=== PATIENT | female | born 1955 | race Caucasian/White ===

== ENCOUNTER → 2018-05-21 16:11 | Outpatient (CLI) | payer OTHER, SELFPAY ==
[2018-05-21 17:19] LABS: Alanine Aminotransferase 25 IU/L (9-52); Albumin 4.2 g/dL (3.5-5.0); Albumin Globulin Ratio 1.2 (1.0-2.8); Alkaline Phosphatase 69 U/L (38-126); Aspartate Aminotransferase 18 IU/L (14-36); BUN Creatinine Ratio 28.6 (6-22); Blood Urea Nitrogen 20 mg/dL (7-17); Calcium 9.5 mg/dL (8.4-10.2); Carbon Dioxide 31 mmol/L (22-32); Chloride 100 mmol/L (98-107); Cholesterol 186 mg/dL (140-199); Estimated Glomerular Filt Rate > 60.0 mL/min (>60); Globulin 3.6 g/dL (1.7-4.1); Glucose 102 mg/dL (80-110); HDL Cholesterol 48 mg/dL (40-60); HEMOLYSIS < 15 (0-50); LDL Cholesterol Calculated 117 mg/dL (<100); Potassium 4.3 mmol/L (3.4-5.1); Sodium 138 mmol/L (137-145); Total Protein 7.8 g/dL (6.3-8.2); Triglycerides 105 mg/dL (35-150)
[2018-05-21 17:44] LABS: TSH w/ Reflex to FT4 0.04 uIU/mL (0.47-4.68)
[2018-05-21 18:13] LABS: Free T4, Direct Thyroxine 1.32 ng/dL (0.78-2.19)
== END ==
PROVIDERS: PCP Family Medicine; Visit Provider Family Medicine
DX: Z13.1 Encounter for screening for diabetes mellitus (principal); Z13.220 Encounter for screening for lipoid disorders; E03.9 Hypothyroidism, unspecified
CPT/HCPCS: 36415; 80053; 80061; 84439; 84443

== ENCOUNTER → 2018-06-05 08:33 | Outpatient (CLI) | payer OTHER, SELFPAY ==
--- NOTE | 2018-06-05 | DI.MG.S_ITS ---
BILATERAL DIGITAL SCREENING MAMMOGRAM 3D/2D WITH CAD: 06/05/2018 CLINICAL: Routine screening. Family history of breast cancer. Comparison is made to exams dated: 05/21/2015 mammogram, 01/05/2014 mammogram, and 12/11/2012 mammogram - [facility]. There are scattered fibroglandular elements in both breasts. Current study was also evaluated with a Computer Aided Detection (CAD) system. No significant masses, calcifications, or other findings are seen in either breast. There has been no significant interval change. IMPRESSION: NEGATIVE There is no mammographic evidence of malignancy. A 1 year screening mammogram is recommended. This exam was interpreted at Station ID: [id number]. NOTE: For mammograms, a report in lay terms will be sent to the patient. Approximately 15% of breast malignancies will not be visualized mammographically. In the management of a palpable breast mass, a negative mammogram must not discourage biopsy of a clinically suspicious lesion. Electronically Signed By: Abi mendoza/deya:06/05/2018 09:03:30 copy to: Samaria Garcia letter sent: Normal Exam ACR BI-RADS Category 1: Negative 3341F
== END ==
PROVIDERS: PCP Family Medicine
DX: Z12.31 Encounter for screening mammogram for malignant neoplasm of breast (principal); Z80.3 Family history of malignant neoplasm of breast
CPT/HCPCS: 77063; 77067

== ENCOUNTER → 2020-05-22 15:41 | Outpatient (CLI) | payer OTHER, SELFPAY ==
--- NOTE | 2020-05-22 15:43 | DI.MG.S_ITS ---
BILATERAL DIGITAL SCREENING MAMMOGRAM 3D/2D WITH CAD: 05/22/2020 CLINICAL: Routine screening. Family history of breast cancer. Comparison is made to exams dated: 06/05/2018 mammogram, 05/21/2015 mammogram, and 01/05/2014 mammogram - [facility]. There are scattered fibroglandular elements in both breasts. Current study was also evaluated with a Computer Aided Detection (CAD) system. No significant masses, calcifications, or other findings are seen in either breast. There has been no significant interval change. IMPRESSION: NEGATIVE There is no mammographic evidence of malignancy. A 1 year screening mammogram is recommended. This exam was interpreted at Station ID: [id number]. NOTE: For mammograms, a report in lay terms will be sent to the patient. Approximately 15% of breast malignancies will not be visualized mammographically. In the management of a palpable breast mass, a negative mammogram must not discourage biopsy of a clinically suspicious lesion. Electronically Signed By: Elisha delgado/deya:05/24/2020 10:25:39 copy to: Samaria Garcia copy to: YONI WOLFE letter sent: Normal Exam ACR BI-RADS Category 1: Negative 3341F
== END ==
PROVIDERS: PCP Family Medicine
DX: Z12.31 Encounter for screening mammogram for malignant neoplasm of breast (principal); Z80.3 Family history of malignant neoplasm of breast
CPT/HCPCS: 77063; 77067

== ENCOUNTER → 2022-11-21 08:31 | Outpatient (CLI) | payer OTHER, SELFPAY ==
[2022-11-21 09:07] LABS: Add Manual Diff / Slide Review NO; Basophils Absolute Auto 0 /uL (0-100); Basophils Percent Auto 0.8 % (0-2); Eosinophils Absolute Auto 100 /uL (0-450); Eosinophils Percent Auto 1.8 % (2-4); Hematocrit 37.2 % (36-46); Hemoglobin 12.6 g/dL (12.0-16.0); Lymphocytes Absolute Auto 1300 /uL (1100-4500); Lymphocytes Percent Auto 41.2 % (25-40); Mean Corpuscular Hemoglobin 30.6 PG (26-34); Mean Corpuscular Volume 90.1 fL (80-100); Monocytes Absolute Auto 200 /uL (0-900); Monocytes Percent Auto 6.9 % (3-14); Neutrophils Absolute Auto 1500 /uL (1500-7000); Neutrophils Percent Auto 49.3 % (50-75); Platelet Count 177 X10^3/uL (150-400); Red Blood Cell Count 4.12 X10^6/uL (4.0-5.2); Red Cell Distribution Width 12.7 % (11.6-14.8); White Blood Cell Count 3.1 X10^3/uL (4.5-11.0)
[2022-11-21 09:18] LABS: Alanine Aminotransferase 13 IU/L (<35); Albumin 4.1 g/dL (3.5-5.0); Albumin Globulin Ratio 1.2 (1.0-2.8); Alkaline Phosphatase 59 U/L (38-126); Aspartate Aminotransferase 18 IU/L (14-36); BUN Creatinine Ratio 17.4 (6-22); Bilirubin Total 1.6 mg/dL (0.2-1.3); Blood Urea Nitrogen 12 mg/dL (7-17); Calcium 9.5 mg/dL (8.4-10.2); Carbon Dioxide 30 mmol/L (22-32); Chloride 101 mmol/L (98-107); Cholesterol 197 mg/dL (140-199); Estimated Glomerular Filt Rate > 60 mL/min (>60); Globulin 3.5 g/dL (1.7-4.1); Glucose 90 mg/dL (80-110); HDL Cholesterol 59 mg/dL (40-60); HEMOLYSIS < 15 (0-50); LDL Cholesterol Calculated 115 mg/dL (<100); Potassium 4.5 mmol/L (3.4-5.1); Sodium 137 mmol/L (137-145); Total Protein 7.6 g/dL (6.3-8.2); Triglycerides 115 mg/dL (35-150)
== END ==
PROVIDERS: PCP Family Medicine; Referring Provider Family Medicine; Visit Provider Family Medicine
DX: E03.9 Hypothyroidism, unspecified (principal); E78.2 Mixed hyperlipidemia; Z13.6 Encounter for screening for cardiovascular disorders
CPT/HCPCS: 36415; 80053; 80061; 84443; 85025

== ENCOUNTER → 2022-12-29 09:25 | Outpatient (CLI) | payer OTHER, SELFPAY ==
[2022-12-29 10:13] LABS: Add Manual Diff / Slide Review NO; Basophils Absolute Auto 0 /uL (0-100); Basophils Percent Auto 0.7 % (0-2); Eosinophils Absolute Auto 0 /uL (0-450); Eosinophils Percent Auto 1.2 % (2-4); Hemoglobin 13.1 g/dL (12.0-16.0); Lymphocytes Absolute Auto 1200 /uL (1100-4500); Mean Corpuscular HGB Conc 34.4 % (30-36); Mean Corpuscular Hemoglobin 30.6 PG (26-34); Mean Corpuscular Volume 88.9 fL (80-100); Monocytes Absolute Auto 300 /uL (0-900); Monocytes Percent Auto 8.4 % (3-14); Neutrophils Absolute Auto 1800 /uL (1500-7000); Neutrophils Percent Auto 53.7 % (50-75); Platelet Count 179 X10^3/uL (150-400); Red Blood Cell Count 4.28 X10^6/uL (4.0-5.2); Red Cell Distribution Width 12.4 % (11.6-14.8); White Blood Cell Count 3.3 X10^3/uL (4.5-11.0)
[2022-12-29 10:47] LABS: Alanine Aminotransferase 15 IU/L (<35); Albumin 4.1 g/dL (3.5-5.0); Albumin Globulin Ratio 1.2 (1.0-2.8); Alkaline Phosphatase 65 U/L (38-126); Aspartate Aminotransferase 20 IU/L (14-36); BUN Creatinine Ratio 14.5 (6-22); Bilirubin Total 1.6 mg/dL (0.2-1.3); Blood Urea Nitrogen 11 mg/dL (7-17); Calcium 9.9 mg/dL (8.4-10.2); Carbon Dioxide 32 mmol/L (22-32); Chloride 100 mmol/L (98-107); Estimated Glomerular Filt Rate > 60 mL/min (>60); Globulin 3.3 g/dL (1.7-4.1); Glucose 97 mg/dL (80-110); HEMOLYSIS < 15 (0-50); Potassium 4.5 mmol/L (3.4-5.1); Sodium 136 mmol/L (137-145); Total Protein 7.4 g/dL (6.3-8.2)
== END ==
PROVIDERS: PCP Family Medicine; Referring Provider Family Medicine; Visit Provider Family Medicine
DX: E80.6 Other disorders of bilirubin metabolism (principal); D70.9 Neutropenia, unspecified
CPT/HCPCS: 36415; 80053; 85025

== ENCOUNTER → 2023-01-05 10:12 | Outpatient (CLI) | payer OTHER, SELFPAY ==
--- NOTE | 2023-01-05 10:13 | DI.US.S_ITS ---
PROCEDURE: US ABDOMEN COMPLETE INDICATIONS: ELEVATED BILIRUBIN TECHNIQUE: Real-time scanning was performed of the abdominal and retroperitoneal organs, with image documentation. COMPARISON: None. FINDINGS: Liver: Liver is normal in size and homogeneous in echotexture. 9 left attic cyst measuring 1.3 cm. Gallbladder: Gallbladder sludge. No wall thickening or evidence of acute cholecystitis. Biliary ducts: Intrahepatic bile ducts are non-dilated. Extrahepatic bile duct caliber measures 5 mm. Normal is 6-7 mm or less in diameter, or 10 mm or less post-cholecystectomy. Pancreas: Visualized portions of the pancreas are sonographically normal. Spleen: Spleen is normal in size and homogeneous in echotexture. Kidneys: Kidneys are normal in size and echotexture. Right kidney measures 8.8 cm long; left kidney measures 5.5 cm long. No hydronephrosis or nephrolithiasis. No solid masses. Aorta: Visualized aorta is normal in caliber at less than 3 cm. Iliacs: Proximal common iliac arteries are normal in caliber at less than 2.5 cm. IVC: Intrahepatic inferior vena cava is patent. Miscellaneous: No free abdominal fluid. IMPRESSION: Gallbladder sludge. No evidence of biliary obstruction or acute cholecystitis. Dictated by: Jules Wilson M.D. on 01/05/2023 at 11:36 Approved by: Jules Wilson M.D. on 01/05/2023 at 11:37
== END ==
PROVIDERS: PCP Family Medicine; Referring Provider Family Medicine; Visit Provider Family Medicine
DX: K82.8 Other specified diseases of gallbladder (principal); R17 Unspecified jaundice
CPT/HCPCS: 76700

== ENCOUNTER 2023-05-29 09:46 | Day surgery (SDC) | payer OTHER, SELFPAY ==
[2023-05-23 13:29] VITALS: BMI 26.4
[2023-05-29] VITALS (9 sets, daily range): BP systolic 114–139; BP diastolic 65–79; PULSE 54–82; RESP 12–24; TEMP 36.4–36.6; O2SAT 96–100; BMI 26.4
[2023-05-29] MEDS: LACTATED RINGERS 1,000 ML 100 ML IV (10:12)
--- NOTE | 2023-05-29 10:40 | P.HP_ITS ---
History of Present Illness History of Present Illness Date Patient Seen: 05/29/23 Time Patient Seen: 10:40 Chief complaint: Left Laparoscopic Inguinal Hernia Repair Narrative: Delmy is a 59-year-old woman with a left inguinal hernia. Initially it was minimally symptomatic but it has become more bothersome recently. It has also increased in size. [facility] Medical History Cardiac arrhythmia Chicken pox (~1961) Depression (1988) Frozen shoulder (2001) Herpes (1982) Hypothyroidism (~1994) Measles (~1961) Mumps (~1961) Shoulder pain (2001) Tinnitus Ubqxl-Gvhtwbkjo-Ohabl (WPW) pattern Surgical History Anesthesia History of bilateral tubal ligation (1992) History of shoulder surgery (2001) History of shoulder surgery (2003) History of tonsillectomy (1967) Family History Brother Age: 69 Diabetes mellitus Hypertension High cholesterol Brother Age: 63 Mental health problem Grandmother Osteoporosis Grandmother Heart disease Sister Mental health problem Hepatitis C Addiction Father ALS (amyotrophic lateral sclerosis) Mother Pancreatic cancer Grandfather Alzheimer's dementia Sister No problems noted. Grandfather No problems noted. 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 leisure activities: reading and other (travel) Smoking Status: Never smoker alcohol intake: current substance use type: does not use Meds Home Medications and Allergies Home Medications Medication Instructions Recorded Confirmed Type simvastatin 20 mg tablet (Zocor) 20 mg PO HS #90 tabs 05/30/19 05/29/23 Rx levothyroxine 100 mcg tablet See Rx Instructions .Route 01/08/23 05/29/23 Rx .COMPLEX #90 tabs citalopram 20 mg tablet 10 mg PO DAILY #90 tabs 05/08/23 05/29/23 Rx Allergies Allergy/AdvReac Type Severity Reaction Status Date / Time codeine [CODEINE] AdvReac Mild VOMITING Verified 05/08/23 09:07 hydrocodone [HYDROCODONE] AdvReac Mild VOMITING Verified 05/29/23 10:14 oxycodone [OXYCODONE] AdvReac Mild VOMITING Verified 05/08/23 09:07 pseudoephedrine AdvReac Mild shakey Verified 05/08/23 09:07 [From Sudafed] Exam Vital Signs (past 8 hours): - 05/29/23 10:24 Pulse Rate 60 Respiratory Rate 18 Blood Pressure 120/70 Oxygen Delivery Method Room Air Oxygen Delivery Method Room Air Narrative Exam Narrative: Reducible left inguinal hernia Assessment & Plan Assessment and plan (1) Left inguinal hernia: Status: Acute Plan We discussed the risks benefits and indications of laparoscopic left inguinal hernia repair with mesh and she would like proceed.
[2023-05-29] MEDS: CEFAZOLIN 2 GM/100 ML PREMIX 100 ML IV (12:25)
--- NOTE | 2023-05-29 12:39 | SUR.OPER ---
Supine on padded OR bed, head on pillow, arms padded and tucked at sides, legs uncrossed, safety belt at thigh, tape over blanket over lower legs .
[2023-05-29] MEDS: BUPIVACAINE 0.5% (PF) 10 ML VIAL 30 ML INJ (12:46)
--- NOTE | 2023-05-29 13:36 | P.OP_ITS ---
Operative Date/Time/Diagnoses Date of procedure: 05/29/23 Time of procedure: 13:36 Pre-op diagnosis: Left inguinal hernia Post-op diagnosis: same Procedure & Clinicians Procedure: Laparoscopic left inguinal hernia repair with mesh Same procedure as scheduled: Yes Surgeon: Keron Marquez [employer] Supplies Distributor: Vince Gagnon Operative Notes Procedure in detail: The patient was given preoperative antibiotics. The patient was brought to the operating room, placed on the table in the supine position with the arms tucked and general anesthesia was induced. The abdomen was prepped and draped in the usual fashion. A time-out was performed. A 1 cm transverse incision was cre ated superior to the umbilicus and dissection was carried down to the fascia. The fascia was grasped with a Roe clamp to elevate the abdominal wall. The fascia was scored transversely with cautery. A Peon clamp was used to tinoco the peritoneum. The Sumit port was placed and the abdomen was insufflated to 15 mmHg. The camera was inserted, there was no evidence of any injury from the entry. There was an indirect left inguinal hernia. 5 mm ports were placed under direct vision in the mid left and mid right abdomen. The patient was positioned in Trendelenburg. We created left peritoneal flap. The peritoneum was dissected off of the round ligament and the Ravi's ligament was exposed. A large left Bard mesh was brought in and placed over the defect with the medial edge against Ravi's ligament. We then closed the peritoneal flap with a running 3-0 barbed suture. We took one last look around the abdomen and saw no other abnormalities. The suture was removed and accounted for. The 5 mm ports were removed under direct vision. The abdomen was desufflated. The Sumit port was removed. Additional local was injected into the fascia and the infraumbilical fascial incision was closed with 2 interrupted 0 Vicryl sutures. The skin incisions were closed with 4 Monocryl, Steri-Strips and Band-Aids. Vince FORD provided assistance with exposure, retraction and closure of incisions. Post-operative Condition: stable Disposition: PACU
[2023-05-29] MEDS: TRAMADOL 50 MG TABLET PO (13:47)
[2023-05-29] MEDS: ONDANSETRON 4 MG/2 ML INJ IV (13:56)
[2023-05-29] MEDS: fentaNYL 100 MCG/2 ML INJ IV (14:11)
== END 2023-05-29 14:45 | disposition home or self-care (01) ==
PROVIDERS: PCP Family Medicine; Referring Provider Surgery; Visit Provider Surgery
PROC: 0YQ64ZZ Repair Left Inguinal Region, Percutaneous Endoscopic Approach (ICD-10-PCS; CPT 49650; principal; 2023-05-29 11:00)
DX: K40.90 Unilateral inguinal hernia, without obstruction or gangrene, not specified as recurrent (principal)
CPT/HCPCS: 49650; J0690; J1100; J2250; J2405; J2704; J3010

== ENCOUNTER → 2023-06-13 07:39 | Outpatient (CLI) | payer OTHER, SELFPAY ==
--- NOTE | 2023-06-13 07:42 | DI.RAD.S_ITS ---
PROCEDURE: XR RIBS RT 2V INDICATIONS: rib injury 06/01; + shingles (on antivirals) TECHNIQUE: 2 views of the right ribs were acquired. COMPARISON: None. FINDINGS: Surgical changes and devices: None. Bones and chest wall: No fractures or dislocations. No suspicious bony lesions. Overlying soft tissues appear unremarkable. Lungs and pleura: The visualized lung appears clear. No pleural effusions or pneumothorax are visible. IMPRESSION: No displaced right rib fracture noted. No underlying pneumothorax. Dictated by: Roger Cramer M.D. on 06/13/2023 at 8:14 Approved by: Roger Cramer M.D. on 06/13/2023 at 8:15
== END ==
PROVIDERS: PCP Student in an Organized Health Care Education/Training Program; Referring Provider Student in an Organized Health Care Education/Training Program; Visit Provider Student in an Organized Health Care Education/Training Program
DX: S23.41XA Sprain of ribs, initial encounter (principal); X58.XXXA Exposure to other specified factors, initial encounter
CPT/HCPCS: 71100

== ENCOUNTER → 2023-10-16 09:08 | Outpatient (CLI) | payer OTHER, SELFPAY | PROVIDERS: PCP Student in an Organized Health Care Education/Training Program; Visit Provider Student in an Organized Health Care Education/Training Program | DX: J02.0 Streptococcal pharyngitis (principal) | CPT/HCPCS: 87081 ==

== ENCOUNTER → 2023-11-23 10:12 | Outpatient (CLI) | payer OTHER, SELFPAY ==
--- NOTE | 2023-11-23 10:13 | DI.MG.S_ITS ---
BILATERAL DIGITAL SCREENING MAMMOGRAM 3D/2D WITH CAD: 11/23/2023 CLINICAL: Routine screening. Family history of breast cancer. Comparison is made to exams dated: 11/23/2021 mammogram - [facility], 05/22/2020 mammogram, and 06/05/2018 mammogram - [facility]. There are scattered areas of fibroglandular density in both breasts (category b / 25%-50% glandular tissue). Current study was also evaluated with a Computer Aided Detection (CAD) system. No significant masses, calcifications, or other findings are seen in either breast. There has been no significant interval change. IMPRESSION: NEGATIVE There is no mammographic evidence of malignancy. A 1 year screening mammogram is recommended. Based on the Tyrer Cuzick model (a risk assessment model) the patient's lifetime risk is 12.6% and her 10 year risk is 7.5%. According to the ACR, ACS, and NCCN guidelines, an annual breast MRI exam along with mammogram is recommended if the patient's lifetime risk is 20% or greater. This exam was interpreted at Station ID: [id number]. NOTE: For mammograms, a report in lay terms will be sent to the patient. Approximately 15% of breast malignancies will not be visualized mammographically. In the management of a palpable breast mass, a negative mammogram must not discourage biopsy of a clinically suspicious lesion. Electronically Signed By: Darío jasso/deya:11/24/2023 08:23:25 copy to: Samaria Garcia copy to: YONI WOLFE letter sent: Normal Exam ACR BI-RADS Category 1: Negative 3341F
== END ==
LOC: MAMMO 10:13
PROVIDERS: PCP Student in an Organized Health Care Education/Training Program; Referring Provider Student in an Organized Health Care Education/Training Program; Visit Provider Student in an Organized Health Care Education/Training Program
DX: Z12.31 Encounter for screening mammogram for malignant neoplasm of breast (principal); Z80.3 Family history of malignant neoplasm of breast; R92.323 Mammographic fibroglandular density, bilateral breasts
CPT/HCPCS: 77063; 77067

== ENCOUNTER 2025-01-22 13:12 | Emergency (ER) | payer OTHER, SELFPAY ==
[2025-01-22 13:17] VITALS: BP 158/103; PULSE 70; RESP 18; TEMP 36.3; O2SAT 99; BMI 27.4
[2025-01-22 13:47] LABS: Add Manual Diff / Slide Review NO; Basophils Absolute Auto 0 /uL (0-100); Basophils Percent Auto 0.8 % (0-2); Eosinophils Absolute Auto 100 /uL (0-450); Eosinophils Percent Auto 2.1 % (2-4); Hematocrit 37.8 % (36-46); Hemoglobin 12.9 g/dL (12.0-16.0); Lymphocytes Absolute Auto 1300 /uL (1100-4500); Lymphocytes Percent Auto 35.2 % (25-40); Mean Corpuscular HGB Conc 34.1 % (30-36); Mean Corpuscular Hemoglobin 30.9 PG (26-34); Mean Corpuscular Volume 90.6 fL (80-100); Monocytes Absolute Auto 300 /uL (0-900); Monocytes Percent Auto 7.2 % (3-14); Neutrophils Absolute Auto 2000 /uL (1500-7000); Neutrophils Percent Auto 54.7 % (50-75); Platelet Count 176 X10^3/uL (150-400); Red Blood Cell Count 4.17 X10^6/uL (4.0-5.2); Red Cell Distribution Width 12.7 % (11.6-14.8); White Blood Cell Count 3.6 X10^3/uL (4.5-11.0)
[2025-01-22 14:00] LABS: Alanine Aminotransferase 20 IU/L (<35); Albumin 4.5 g/dL (3.5-5.0); Albumin Globulin Ratio 1.2 (1.0-2.8); Alkaline Phosphatase 73 U/L (38-126); Aspartate Aminotransferase 31 IU/L (14-36); BUN Creatinine Ratio 27.3 (6-22); Bilirubin Total 1.6 mg/dL (0.2-1.3); Blood Urea Nitrogen 18 mg/dL (7-17); Calcium 9.5 mg/dL (8.4-10.2); Carbon Dioxide 24 mmol/L (22-32); Chloride 106 mmol/L (98-107); Estimated Glomerular Filt Rate > 60 mL/min (>60); Globulin 3.8 g/dL (1.7-4.1); Glucose 92 mg/dL (80-110); HEMOLYSIS 33 (0-50); Lipase 155 U/L (23-300); Potassium 4.3 mmol/L (3.4-5.1); Sodium 138 mmol/L (137-145); Total Protein 8.3 g/dL (6.3-8.2)
--- NOTE | 2025-01-22 14:16 | EKG_ITS ---
[address] [address] Test Date: 2025-01-22 Pat Name: Delmy Almaguer Department: [facility] Room: Gender: Female Clinical Dietitian: MG : 1955 Requested By: Order Number: [id number] Reading MD: Brandon Acevedo MD Measurements Intervals [place] Rate: 63 P: 26 HI: 146 QRS: 21 QRSD: 76 T: 16 QT: 386 QTc: 395 Interpretive Statements Normal sinus rhythm Electronically Signed On 01-22-2025 16:56:21 PDT by Brandon Acevedo MD
--- NOTE | 2025-01-22 16:22 | DI.US.S_ITS ---
PROCEDURE: US ABDOMEN LIMITED INDICATIONS: UPPER ABDOMINAL PAIN POST PRANDIAL TECHNIQUE: Real-time scanning was performed of the abdominal and retroperitoneal organs, with image documentation. COMPARISON: [facility], US, US ABDOMEN COMPLETE, 01/05/2023, 10:21. FINDINGS: Liver: Increased liver echogenicity. Benign left hepatic lobe cyst with thin internal septation measuring 1.3 centimeter. This has decreased from prior. Gallbladder: No gallstones. No wall thickening. No pericholecystic edema. Negative sonographic Mccollum's sign. Biliary ducts: Intrahepatic bile ducts are non-dilated. Extrahepatic bile duct caliber measures 6.7 mm. Normal is 6-7 mm or less in diameter, or 10 mm or less post-cholecystectomy. Pancreas: Visualized portions of the pancreas are sonographically normal. Miscellaneous: No free abdominal fluid. IMPRESSION: No gallbladder pathology. Increased liver echogenicity, likely mild hepatic steatosis. Dictated by: Jules Wilson M.D. on 01/22/2025 at 16:59 Approved by: Jules Wilson M.D. on 01/22/2025 at 17:00
[2025-01-22] MEDS: MAG HYDROX/ALUMINUM/SIMETH SUS 20 ML, LIDOCAINE VISCOUS 2% 15 ML PO (16:27)
[2025-01-22 17:19] VITALS: BP 140/71; PULSE 85; RESP 18
[2025-01-22 17:20] LABS: Creatine Kinase 47 U/L (30-135)
[2025-01-22 17:33] LABS: Troponin I < 0.012 ng/mL (0.01-0.034)
--- NOTE | 2025-01-22 18:00 | PC.NURSE ---
Patient reports her burning epigastric pain was initially relieved by GI cocktail but is now coming back.
--- NOTE | 2025-01-22 18:16 | DI.RAD.S_ITS ---
PROCEDURE: XR CHEST 1V INDICATIONS: chest pain TECHNIQUE: One view of the chest was acquired. COMPARISON: None. FINDINGS: Surgical changes and devices: None. Lungs and pleura: Lungs are clear. No pleural effusions or pneumothorax. Mediastinum: Mediastinal contours appear normal. Heart size is normal. Bones and chest wall: No suspicious bony lesions. Overlying soft tissues appear unremarkable. IMPRESSION: No acute cardiopulmonary abnormalities or focal consolidation. Dictated by: Darío Kirk M.D. on 01/22/2025 at 20:09 Approved by: Darío Kirk M.D. on 01/22/2025 at 20:10
--- NOTE | 2025-01-22 19:15 | ED_ITS ---
HPI - Abdominal Pain General Chief Complaint: Abdominal Pain Stated Complaint: upper abd pain after eating, nausea Time Seen by Provider: 01/22/25 19:07 History of Present Illness HPI narrative: Patient is 69-year-old female hypothyroid hyperlipidemia presenting to day with ongoing abdominal cramping pain and burning. Sometimes she feels burning in her chest but not now. She feels like she gets cramps occasionally no diarrhea no constipation no nausea no vomiting. No shortness a breath. No weight loss. Feels burning which is resolved with Maalox. She has not been taking excessive ibuprofen or NSAIDS. No black stools Related Data Home Medications Medication Instructions Recorded Confirmed albuterol sulfate 90 mcg/actuation 1 inh inhalation Q4-6H PRN 03/04/24 03/04/24 breath activated powder inhaler,sensor doxycycline hyclate 100 mg capsule 100 mg PO BID 03/04/24 03/04/24 fluticasone propionate 50 2 spray intranasal DAILY 03/04/24 03/04/24 mcg/actuation nasal spray,suspension (Allergy Relief (fluticasone)) prednisone 20 mg tablet 20 mg PO BID 03/04/24 03/04/24 Previous Rx's Medication Instructions Recorded triamcinolone acetonide 0.1 % 1 applic topical DAILY #30 grams 10/16/23 topical cream amoxicillin 875 mg-potassium 1 tab PO BID #14 tabs 03/04/24 clavulanate 125 mg tablet azithromycin 500 mg tablet See Rx Instructions PO .COMPLEX #3 03/04/24 tabs citalopram 20 mg tablet 20 mg PO DAILY #90 tabs 04/03/24 fluticasone propionate 44 2 puff PO BID #10.6 grams 05/06/24 mcg/actuation HFA aerosol inhaler simvastatin 20 mg tablet 20 mg PO QPM #90 tabs 05/06/24 levothyroxine 100 mcg tablet See Rx Instructions .Route 12/03/24 .COMPLEX #90 tabs omeprazole 20 mg capsule,delayed 20 mg PO DAILY #14 caps 01/22/25 release Allergies Allergy/AdvReac Type Severity Reaction Status Date / Time codeine [CODEINE] AdvReac Mild VOMITING Verified 03/04/24 10:35 hydrocodone [HYDROCODONE] AdvReac Mild VOMITING Verified 03/04/24 10:35 oxycodone [OXYCODONE] AdvReac Mild VOMITING Verified 03/04/24 10:35 pseudoephedrine AdvReac Mild shakey Verified 03/04/24 10:35 [From [facility]] Patient History Medical History Cardiac arrhythmia Chicken pox (~1961) Depression (1988) Frozen shoulder (2001) Herpes (1982) Hypothyroidism (~1994) Measles (~1961) Mumps (~1961) Shoulder pain (2001) Tinnitus Bldxg-Asrxqawxi-Dvgkc (WPW) pattern Surgical History Anesthesia History of bilateral tubal ligation (1992) History of shoulder surgery (2001) History of shoulder surgery (2003) History of tonsillectomy (1967) Family History Brother Age: 70 Diabetes mellitus Hypertension High cholesterol Brother Age: 64 Mental health problem Grandmother Osteoporosis Grandmother Heart disease Sister Mental health problem Hepatitis C Addiction Father ALS (amyotrophic lateral sclerosis) Mother Pancreatic cancer Grandfather Alzheimer's dementia Sister No problems noted. Grandfather No problems noted. 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 HEENT: Head atraumatic,EOMI, pupils reactive, face symmetric, moist mucous membranes CARDIOVASCULAR: Regular rate and rhythm without murmurs, rubs or gallops. RESPIRATORY: Breath sounds equal bilaterally, no wheezes rales or rhonchi. ABDOMEN: Soft, minimal abdominal pain mild epigastric pain negative Mccollum's sign no guarding no rebound positive bowel sounds EXTREMITIES: Normal range of motion, no clubbing or edema. Neurovascularly intact NEUROLOGICAL: Alert and oriented x4.Normal gait and speech. Cranial nerves II through XII grossly intact. SKIN: Warm, dry, no laceration, no petechiae, no rashes or lesions. Course Orders Ordered: ED Orders 01/22/25 19:36 CT abdomen pelvis w con Stat Discontinued Medications Al Hydrox/Mg Hydrox/Simethicone 20 ml/ Lidocaine HCl 15 ml 0 ml PO NOW ONE Stop: 01/22/25 16:19 Last Admin: 01/22/25 16:27 Dose: 35 ml Documented By: MG Ondansetron HCl (Ondansetron 4 Mg/2 Ml Inj) 4 mg IV NOW PRN PRN Reason: Nausea And Vomiting Ondansetron HCl (Ondansetron 4 Mg Odt) 4 mg PO NOW PRN PRN Reason: Nausea And Vomiting Pantoprazole Sodium (Pantoprazole 40 Mg Vial) 40 mg IV NOW ONE Stop: 01/22/25 18:17 Last Admin: 01/22/25 19:21 Dose: 40 mg Documented By: NIKKI Vital Signs Vital signs: Vital Signs - 8 hr 01/22/25 21:10 01/22/25 21:11 01/22/25 21:11 Pulse Rate 68 66 Blood Pressure 136/77 Pulse Oximetry 99 99 01/22/25 21:30 01/22/25 21:30 Pulse Rate 63 Blood Pressure 134/69 Pulse Oximetry 97 MDM - Abdominal Pain Lab Data 01/22/25 13:25 01/22/25 13:25 Labs: Lab Results 01/22/25 01/22/25 Range/Units 13:25 18:57 WBC 3.6 L (4.5-11.0) X10^3/uL RBC 4.17 (4.0-5.2) X10^6/uL Hgb 12.9 (12.0-16.0) g/dL Hct 37.8 (36-46) % MCV 90.6 (80-100) fL MCH 30.9 (26-34) PG MCHC 34.1 (30-36) % RDW 12.7 (11.6-14.8) % Plt Count 176 (150-400) X10^3/uL Neut % (Auto) 54.7 (50-75) % Lymph % (Auto) 35.2 (25-40) % [place] % (Auto) 7.2 (3-14) % Eos % (Auto) 2.1 (2-4) % Baso % (Auto) 0.8 (0-2) % Neut # (Auto) 2000 (1405-8145) /uL Lymph # (Auto) 1300 (8067-2072) /uL [place] # (Auto) 300 (0-900) /uL Eos # (Auto) 100 (0-450) /uL Baso # (Auto) 0 (0-100) /uL Sodium 138 (137-145) mmol/L Potassium 4.3 (3.4-5.1) mmol/L Chloride 106 (98-107) mmol/L Carbon Dioxide 24 (22-32) mmol/L BUN 18 H (7-17) mg/dL Creatinine 0.66 (0.52-1.04) mg/dL Estimated GFR > 60 (>60) mL/min BUN/Creatinine Ratio 27.3 H (6-22) Glucose 92 (80-110) mg/dL Calcium 9.5 (8.4-10.2) mg/dL Total Bilirubin 1.6 H (0.2-1.3) mg/dL AST 31 (14-36) IU/L ALT 20 (<35) IU/L Alkaline Phosphatase 73 (38-126) U/L Total Creatine Kinase 47 (30-135) U/L Troponin I < 0.012 < 0.012 (0.01-0.034) ng/mL Total Protein 8.3 H (6.3-8.2) g/dL Albumin 4.5 (3.5-5.0) g/dL Globulin 3.8 (1.7-4.1) g/dL Albumin/Globulin Ratio 1.2 (1.0-2.8) Lipase 155 (23-300) U/L Point of care testing: Urine Dip Bedside Urine Glucose Negative Bedside Urine Bilirubin - Negative Bedside Urine Ketone ++ 40 Urine Specific [place] 1.030 Bedside Urine Occult Blood - Negative Bedside Urine pH 5.5 Bedside Urine Protein - Negative Bedside Urine Urobilinogen - Negative Bedside Urine Nitrite - Negative Bedside Urine Leukocytes - Negative Esterase Imaging Data US - abdomen: Radiologist's Impression: PROCEDURE: US ABDOMEN LIMITED INDICATIONS: UPPER ABDOMINAL PAIN POST PRANDIAL TECHNIQUE: Real-time scanning was performed of the abdominal and retroperitoneal organs, with image documentation. COMPARISON: [facility], US, US ABDOMEN COMPLETE, 01/05/2023, 10:21. FINDINGS: Liver: Increased liver echogenicity. Benign left hepatic lobe cyst with thin internal septation measuring 1.3 centimeter. This has decreased from prior. Gallbladder: No gallstones. No wall thickening. No pericholecystic edema. Negative sonographic Mccollum's sign. Biliary ducts: Intrahepatic bile ducts are non-dilated. Extrahepatic bile duct caliber measures 6.7 mm. Normal is 6-7 mm or less in diameter, or 10 mm or less post-cholecystectomy. Pancreas: Visualized portions of the pancreas are sonographically normal. Miscellaneous: No free abdominal fluid. IMPRESSION: No gallbladder pathology. Increased liver echogenicity, likely mild hepatic steatosis. Dictated by: Jules Wilson M.D. on 01/22/2025 at 16:59 CT scan - abdomen/pelvis: Radiologist's Impression: PROCEDURE: CT ABDOMEN PELVIS W CON INDICATIONS: ab pain nausea TECHNIQUE: After the administration of intravenous contrast, axial sections acquired from the lung bases to the pubic symphysis. Coronal and sagittal reformats were performed. For radiation dose reduction, the following was used: automated exposure control, adjustment of mA and/or kV according to patient size. COMPARISON: [facility], , US ABDOMEN LIMITED, 01/22/2025, 16:38. FINDINGS: Image quality: Diagnostic. Lower Chest: No significant findings. ABDOMEN: Liver: No solid mass. Mildly lobulated left hepatic lobe cyst similar in appearance to ultrasound. Gallbladder: No radiopaque gallstones or wall thickening. There is diffuse hypoattenuation of the liver parenchyma relative to the spleen compatible with hepatic steatosis. Biliary ducts: No biliary dilation. Pancreas: No ductal dilation. Spleen: Size is within normal limits. Adrenal Glands: No adrenal nodules. Kidneys and Ureters: No hydronephrosis. No solid mass. No complex renal cystic lesion which requires follow up. Stomach and Bowel: Normal colonic caliber, without significant wall thickening. No evidence for small bowel obstruction or associated inflammatory changes. Normal appendix. Moderate fecal burden seen throughout the colon. Peritoneum: No abnormal intraperitoneal fluid. No free air. Ventral Wall: There is a fat-containing umbilical hernia without acute inflammation. Abdominal Nodes: No retroperitoneal or mesenteric adenopathy by size criteria. Vessels: Scattered atherosclerotic calcifications of the abdominal aorta and iliac vessels without aneurysmal dilatation. The inferior vena cava appears patent. PELVIS: Pelvic Organs: Unremarkable. Bladder: No bladder wall thickening, accounting for underdistention. Pelvic Nodes: No enlarged lymph nodes. Miscellaneous: No inguinal hernias are seen. Bones: No aggressive osseous abnormality. Visualized osseous structures appear intact without acute fracture or focal destructive lesion. No acute compression fractures of the imaged spine. Degenerative changes at L1 with chronic compression deformity. IMPRESSION: CT abdomen and pelvis without acute abnormalities. Moderate fecal burden seen throughout the colon. This may be related to constipation. Normal appendix. No evidence for bowel obstruction. Dictated by: Darío Kirk M.D. on 01/22/2025 at 21:01 ECG Data Attestation: I personally reviewed and interpreted this ECG as follows: Prior ECG tracings: available for review Interpretation: Normal sinus rhythm rate 63 NJ interval 146 QRS 76 QTC 395 T-wave inversion noted in lead [address] elevation MDM Narrative Medical decision making narrative: Patient is 69-year-old female presenting today with abdominal pain. Reports some cramping and burning sensation. No diarrhea constipation or bowel habit changes. Blood work has been reviewed no evidence of pancreatitis lipase 155, Bilirubin chronically elevated at 1.6 no change AST ALT within normal limits alk-phos within normal limits She has no electrolyte abnormality no MADDIE Troponin negative x2 WBC 3.6 which is baseline for her it was previously 3.3 no anemia Chest x-ray no acute cardiopulmonary process Ultrasound does not show any evidence of cholecystitis cholelithiasis CT abdomen no acute abnormality EKGs within normal limits At this time patient abdomen is soft nontender nondistended she has a nonacute abdomen no evidence of peritoneal signs. Ultrasound on blood work overall reassuring. Without significant evidence of abdominal pathology. She does have prior history of hernia surgeries but she was not vomiting and passing gas so low suspicion for any kind bowel obstruction. Symptoms have been ongoing for 2 weeks. At this time we will go ahead and treat for acid reflux however if symptoms are persisting she will need further imaging studies done. However at this time she was hemodynamically stable with out significant lab abnormalities. Differential diagnosis GERD gastritis peptic ulcer cholelithiasis pancreatitis Discharge Plan Departure Patient Disposition: Home Clinical Impression: Gastritis, GERD (gastroesophageal reflux disease) Instructions: DI for Gastroesophageal Reflux Disease (GERD) Activity Restrictions/Additional Instructions: *You have been diagnosed with GERD gastritis *What to do: At this time I think tried taking some acid reflux medicine for 2 weeks to see if it improves your symptoms *Continue to take medications as directed Omeprazole 20 mg once a day for 2 weeks *Follow up with your primary care provider in 2-3 days or call [phone] *Return to ER if you should have increasing abdominal pain nausea vomiting or any new, worsening or concerning symptoms Prescriptions: New omeprazole 20 mg capsule,delayed release(DR/EC) 20 mg PO DAILY Qty: 14 0RF No Action triamcinolone acetonide 0.1 % cream 1 applic topical DAILY Qty: 30 0RF prednisone 20 mg tablet 20 mg PO BID fluticasone propionate [Allergy Relief (fluticasone)] 50 mcg/actuation spray,suspension 2 spray intranasal DAILY Rx Instructions: administer into each nostril albuterol sulfate 90 mcg/actuation aero powdr breath act w/sensor 1 inh inhalation Q4-6H PRN doxycycline hyclate 100 mg capsule 100 mg PO BID amoxicillin-pot clavulanate 875-125 mg tablet 1 tab PO BID Qty: 14 0RF azithromycin 500 mg tablet See Rx Instructions PO .COMPLEX Qty: 3 0RF Rx Instructions: For 500 mg dose pack: take 500 mg once daily for 3 days PO citalopram 20 mg tablet 20 mg PO DAILY Qty: 90 2RF fluticasone propionate 44 mcg/actuation HFA aerosol inhaler 2 puff PO BID Qty: 10.6 1RF simvastatin 20 mg tablet 20 mg PO QPM Qty: 90 2RF levothyroxine 100 mcg tablet See Rx Instructions .ROUTE .COMPLEX Qty: 90 3RF Dose Instruction: TAKE 1 TABLET BY MOUTH DAILY Rx Instructions: TAKE 1 TABLET BY MOUTH DAILY Referrals: Therese Gamino MD [Primary Care Provider] - Stand Alone Forms: Patient Portal/API/Survey
[2025-01-22] MEDS: PANTOPRAZOLE 40 MG VIAL IV (19:21)
[2025-01-22 19:27] LABS: Troponin I < 0.012 ng/mL (0.01-0.034)
[2025-01-22 19:30] VITALS: BP 145/69; PULSE 60; RESP 16; O2SAT 100
--- NOTE | 2025-01-22 19:36 | DI.CT.S_ITS ---
PROCEDURE: CT ABDOMEN PELVIS W CON INDICATIONS: ab pain nausea TECHNIQUE: After the administration of intravenous contrast, axial sections acquired from the lung bases to the pubic symphysis. Coronal and sagittal reformats were performed. For radiation dose reduction, the following was used: automated exposure control, adjustment of mA and/or kV according to patient size. COMPARISON: [facility], , US ABDOMEN LIMITED, 01/22/2025, 16:38. FINDINGS: Image quality: Diagnostic. Lower Chest: No significant findings. ABDOMEN: Liver: No solid mass. Mildly lobulated left hepatic lobe cyst similar in appearance to ultrasound. Gallbladder: No radiopaque gallstones or wall thickening. There is diffuse hypoattenuation of the liver parenchyma relative to the spleen compatible with hepatic steatosis. Biliary ducts: No biliary dilation. Pancreas: No ductal dilation. Spleen: Size is within normal limits. Adrenal Glands: No adrenal nodules. Kidneys and Ureters: No hydronephrosis. No solid mass. No complex renal cystic lesion which requires follow up. Stomach and Bowel: Normal colonic caliber, without significant wall thickening. No evidence for small bowel obstruction or associated inflammatory changes. Normal appendix. Moderate fecal burden seen throughout the colon. Peritoneum: No abnormal intraperitoneal fluid. No free air. Ventral Wall: There is a fat-containing umbilical hernia without acute inflammation. Abdominal Nodes: No retroperitoneal or mesenteric adenopathy by size criteria. Vessels: Scattered atherosclerotic calcifications of the abdominal aorta and iliac vessels without aneurysmal dilatation. The inferior vena cava appears patent. PELVIS: Pelvic Organs: Unremarkable. Bladder: No bladder wall thickening, accounting for underdistention. Pelvic Nodes: No enlarged lymph nodes. Miscellaneous: No inguinal hernias are seen. Bones: No aggressive osseous abnormality. Visualized osseous structures appear intact without acute fracture or focal destructive lesion. No acute compression fractures of the imaged spine. Degenerative changes at L1 with chronic compression deformity. IMPRESSION: CT abdomen and pelvis without acute abnormalities. Moderate fecal burden seen throughout the colon. This may be related to constipation. Normal appendix. No evidence for bowel obstruction. Dictated by: Darío Kirk M.D. on 01/22/2025 at 21:01 Approved by: Darío Kirk M.D. on 01/22/2025 at 21:06
[2025-01-22 21:10] VITALS: PULSE 68; O2SAT 99
[2025-01-22 21:11] VITALS: BP 136/77; PULSE 66; O2SAT 99
[2025-01-22 21:30] VITALS: BP 134/69; PULSE 63; O2SAT 97
== END 2025-01-22 21:45 | disposition home or self-care (01) ==
PROVIDERS: Emergency Medicine; Emergency Provider Emergency Medicine; PCP Student in an Organized Health Care Education/Training Program
DX: K21.9 Gastro-esophageal reflux disease without esophagitis (principal); K29.70 Gastritis, unspecified, without bleeding
CPT/HCPCS: 36415; 71045; 74177; 76705; 80053; 81003; 82550; 83690; 84484; 85025; 93005; 93010; 96374; 99284; J2470; Q9967

== ENCOUNTER → 2025-06-05 08:37 | Outpatient (CLI) | payer OTHER, SELFPAY ==
--- NOTE | 2025-06-05 08:38 | DI.MG.S_ITS ---
MM diagnostic mammo BI: 06/05/2025. BI-RADS: 1 CLINICAL: 69-year old female for bilateral diagnostic mammogram. Tyrer-Cuzick lifetime risk of 11.4%. Current reported family history of breast cancer: mother, sister, second sister and maternal uncle's daughter. The patient reports diffuse lateral left breast pain for the past two months. The patient reports the pain was constant at first, but now only occurs with palpation. PRIOR EXAMS 11/23/2023, 11/23/2021, 05/22/2020, 06/05/2018. MAMMOGRAPHY TECHNIQUE: 2D and 3D (tomosynthesis) digital mammographic views obtained, with additional images as needed for full coverage. Current study was also evaluated with a Computer Aided Detection (CAD) system. DENSITY B. There are scattered areas of fibroglandular density. MAMMOGRAPHY FINDINGS Right: No suspicious mass, asymmetry, microcalcification, or other abnormality seen. Left: Outer Hemisphere: There is no suspicious mammographic finding to account for concern by the patient of pain/tenderness. No suspicious mass, asymmetry, microcalcification, or other abnormality seen. IMPRESSION: * No evidence of malignancy. RECOMMENDATIONS Left * Diffuse, non-focal symptoms, such as pain or fullness are typically benign. Clinical follow-up is recommended, and further management of these symptoms should be based on the results of clinical evaluation. If diffuse symptoms persist or become more focal in nature, further clinical evaluation should be considered. Bilateral * Annual screening mammography. COMMENTS: Findings and recommendations were conveyed to the patient during today's evaluation. OVERALL ASSESSMENT CATEGORY BI-RADS-1: Negative. The [employer] recommends annual screening mammography beginning at age 40 for women with average risk of breast cancer. ELECTRONICALLY SIGNED: Martha Cuevas M.D. on 06/05/2025 at 03:20:07 PM PT Interpreting Station ID: [id number]
== END ==
PROVIDERS: PCP Student in an Organized Health Care Education/Training Program; Referring Provider Student in an Organized Health Care Education/Training Program; Visit Provider Student in an Organized Health Care Education/Training Program
DX: N64.4 Mastodynia (principal); Z80.3 Family history of malignant neoplasm of breast
CPT/HCPCS: 77066; G0279